=== PATIENT | female | born 1975 | race Caucasian/White ===

== ENCOUNTER 2023-08-29 19:58 | Emergency (ER) | payer OTHER ==
[~2023-08-29] VITALS: Ht 157.5 cm; Wt 74.8 kg
[2023-08-29 20:22] VITALS: BP_SYST 153; PULSE 115; RESP 19; TEMP 97.9; O2SAT 97
[2023-08-29] MEDS ORDERED: CYCL10TA24 PO (22:33)
[2023-08-29 22:44] VITALS: BP_SYST 153; PULSE 115; RESP 19; TEMP 97.9; O2SAT 97
== END 2023-08-29 22:44 | disposition home or self-care (01) ==
LOC: SED 19:58
DX: S16.1XXA Strain of muscle, fascia and tendon at neck level, initial encounter (principal); S29.012A Strain of muscle and tendon of back wall of thorax, initial encounter; S66.811A Strain of other specified muscles, fascia and tendons at wrist and hand level, right hand, initial encounter; Z88.2 Allergy status to sulfonamides; Z79.899 Other long term (current) drug therapy; V89.2XXA Person injured in unspecified motor-vehicle accident, traffic, initial encounter; Y93.89 Activity, other specified; Y92.89 Other specified places as the place of occurrence of the external cause; Y99.8 Other external cause status
CPT/HCPCS: 71045; 72040-TC; 99284